=== PATIENT | male | born 1985 | race Caucasian/White ===

== ENCOUNTER 2018-06-24 09:20 | Emergency (ER) | payer OTHER ==
[2018-06-24] MEDS: FLUORESCEIN STRIP RIGHT EYE (11:02)
[2018-06-24] MEDS: TETRACAINE 0.5% 4 ML OPH RIGHT EYE (11:02)
== END 2018-06-24 11:10 | disposition home or self-care (01) ==
LOC: FTE 09:20
DX: S05.01XA Injury of conjunctiva and corneal abrasion without foreign body, right eye, initial encounter (principal); X58.XXXA Exposure to other specified factors, initial encounter; Y92.9 Unspecified place or not applicable
CPT/HCPCS: 99283